=== PATIENT | male | born 1985 | race Hispanic/Latino ===

== ENCOUNTER 2019-07-31 16:06 | Emergency (ER) | payer SELFPAY ==
[2019-07-31] MEDS ORDERED: KEFLEX500 M1 PO (16:54)
[2019-07-31] MEDS ORDERED: BACTROBAN TOP (16:54)
[2019-07-31] MEDS ORDERED: BACTRIM DS1 TAB PO (16:54)
[2019-07-31 17:11] VITALS: BP 121/77
== END 2019-07-31 17:03 | disposition home or self-care (01) | DRG 607 ==
LOC: ED 16:06
DX: L53.9 Erythematous condition, unspecified (principal); R22.2 Localized swelling, mass and lump, trunk